=== PATIENT | male | born 2000 | race Caucasian/White ===

== ENCOUNTER 2018-09-10 08:02 | Emergency (ER) | payer BC ==
[~2018-09-10] VITALS: Ht 195.6 cm; Wt 93.2 kg
[~2018-09-10 08:02] MED LIST: CHILDREN'S5 MG/5 M1; TYLENOL/CODEINE1 ML PO
[2018-09-10 08:06] VITALS: TEMP 98.9
[2018-09-10 08:29] LABS: HEMATOCRIT 47.4 % (36.0-47.0); MEAN CELL VOLUME 80 fl (80.0-95.0); MEAN CORPUSCULAR HEMOGLOBIN 29 pg (26.0-32.0); MEAN CORPUSCULAR HGB CONC 36 g/dl (33.0-37.0); MEAN PLATELET VOLUME 10.8 fl (7.4-10.4); PLATELET COUNT 229 K/mm3 (130-400); RED BLOOD COUNT 5.92 M/mm3 (4.20-5.60); REDCELL DISTRIBUTION WIDTH-CV 12.3 % (11.5-14.5)
[2018-09-10 08:41] LABS: ALBUMIN 4.7 gm/dL (3.5-5.0); BILIRUBIN,TOTAL 1.8 mg/dL (0.0-1.0); C-REACTIVE PROTEIN 1.2 mg/dL (0.0-0.9); CALCIUM 10.1 mg/dL (8.4-10.2); CREATININE, serum 0.99 mg/dL (0.66-1.25); POTASSIUM 3.9 mmol/L (3.4-5.0); TOTAL PROTEIN 7.9 gm/dL (6.4-8.2)
[2018-09-10 08:51] LABS: BAND 14 % (0-10); NEUTROPHILS 81 % (42.0-75.2)
[2018-09-10 08:54] LABS: PLATELET ESTIMATE NORMAL (NORMAL)
[2018-09-10] MEDS ORDERED: ZOFRAN ODT4 MG PO (09:11)
[2018-09-10 11:23] VITALS: BP 109/58; PULSE 105
== END 2018-09-10 11:34 | disposition home or self-care (01) ==
LOC: COL.ER 08:02
PROVIDERS: Physician Assistant
DX: A08.4 Viral intestinal infection, unspecified (principal)
CPT/HCPCS: J2405; J2765; J7030